=== PATIENT | female | born 1995 | race American Indian/Alaskan Native ===

== ENCOUNTER 2017-09-13 09:21 | Emergency (ER) | payer SELFPAY ==
[2017-09-13 09:50] VITALS: BP 156/89
--- NOTE | 2017-09-13 11:35 | Emergency Department Report ---
ED Female HPI - General Chief complaint: Urogenital-Female Stated complaint: VAGINAL DISCOMFORT/DISCHARGE Time Seen by Provider: 09/13/17 10:56 Source: patient Mode of arrival: Ambulatory Limitations: No Limitations - History of Present Illness MD Complaint: vaginal discharge -: Gradual Severity: mild Consistency: constant Improves with: none Worsens with: none Are you Now?: No Associated Symptoms: vaginal discharge. denies: vaginal bleeding, abdominal pain, nausea/vomiting, fever/chills, headaches, loss of appetite, dysuria, hematuria, rash, seizure, shortness of breath, syncope, weakness - Related Data Sexually active: Yes Previous Rx's Medication Instructions Recorded Last Taken Type Fluconazole [Diflucan TAB] 100 mg PO QDAY #2 tablet 09/13/17 Unknown Rx metroNIDAZOLE [Flagyl] 500 mg PO Q12HR #28 tab 09/13/17 Unknown Rx Allergies Allergy/AdvReac Type Severity Reaction Status Date / Time No Known Allergies Allergy Unverified 09/13/17 09:45 ED Review of Systems ROS: Stated complaint: VAGINAL DISCOMFORT/DISCHARGE Other details as noted in HPI Comment: Unobtainable due to pts medical conditions Constitutional: no symptoms reported, see HPI. denies: chills, fever Eyes: as per HPI. denies: eye pain ENT: as per HPI. denies: ear pain, throat pain Respiratory: no symptoms reported, see HPI. denies: cough, orthopnea Cardiovascular: as per HPI. denies: chest pain, palpitations, dyspnea on exertion, orthopnea Endocrine: no symptoms reported, see HPI. denies: excessive sweating, flushing , intolerance to cold, intolerance to heat Gastrointestinal: as per HPI. denies: abdominal pain, nausea, vomiting, diarrhea, constipation, hematemesis, melena Genitourinary: as per HPI, discharge. denies: urgency, dysuria, frequency, hematuria, abnormal menses, dyspareunia Musculoskeletal: as per HPI. denies: back pain Skin: as per HPI. denies: rash, lesions Neurological: as per HPI. denies: headache, weakness Psychiatric: as per HPI. denies: anxiety, depression Hematological/Lymphatic: as per HPI. denies: easy bleeding ED Past Medical Hx - Past Medical History Previous Medical History?: No - Surgical History Past Surgical History?: No - Social History Smoking Status: Former Smoker - Medications Home Medications: Home Medications Medication Instructions Recorded Confirmed Last Taken Type Fluconazole [Diflucan TAB] 100 mg PO QDAY #2 tablet 09/13/17 Unknown Rx metroNIDAZOLE [Flagyl] 500 mg PO Q12HR #28 tab 09/13/17 Unknown Rx ED Physical Exam - General Limitations: No Limitations General appearance: alert - Head Head exam: Present: atraumatic - Eye Eye exam: Present: PERRL - ENT ENT exam: Present: mucous membranes moist - Neck Neck exam: Present: normal inspection - Respiratory Respiratory exam: Present: normal lung sounds bilaterally - Cardiovascular Cardiovascular Exam: Present: regular rate - GI/Abdominal GI/Abdominal exam: Present: soft, normal bowel sounds. Absent: distended, tenderness, guarding, rebound, rigid, diminished bowel sounds - Rectal Rectal exam: Present: deferred - External exam: Present: normal external exam Speculum exam: Present: normal speculum exam, erythema, vaginal discharge, cervical discharge. Absent: vaginal bleeding, foreign body, tissue Bi-manual exam: Present: normal bi-manual exam. Absent: cervical motion tendernes, adnexal tenderness, adnexal mass, uterine enlargement, uterine tenderness - Extremities Exam Extremities exam: Present: normal inspection, full ROM, normal capillary refill. Absent: tenderness, pedal edema, joint swelling - Back Exam Back exam: Present: normal inspection, full ROM. Absent: tenderness, CVA tenderness (R), CVA tenderness (L), muscle spasm, paraspinal tenderness, vertebral tenderness - Neurological Exam Neurological exam: Present: alert, oriented X3, CN II-XII intact, normal gait - Psychiatric Psychiatric exam: Present: normal affect, normal mood - Skin Skin exam: Present: warm, dry, intact ED Course Vital Signs 09/13/17 09:45 Temperature 98.4 F Pulse Rate 80 Respiratory 20 Rate Blood Pressure 156/89 O2 Sat by Pulse 100 Oximetry - Reevaluation(s) Reevaluation #1: 09/13/17 13:05 to er w new vag dc w odor 2 sex partners. one on and off. the other rekindle. concerned for std no prev obgyn exam g0 preg neg pelvic completed see exam vss no fever no cva no abd pain dc home w obgyn referral ED Medical Decision Making - Medical Decision Making see note Critical care attestation.: If time is entered above; I have spent that time in minutes in the direct care of this critically ill patient, excluding procedure time. ED Disposition Clinical Impression: BV (bacterial vaginosis), Yeast infection, UTI (urinary tract infection) Disposition: TO HOME OR SELFCARE Is pt being admited?: No Does the pt Need Aspirin: No Condition: Stable Instructions: Bacterial Vaginosis (ED), Vulvovaginal Candidiasis (ED) Additional Instructions: safe sex Prescriptions: Fluconazole [Diflucan TAB] 100 mg PO QDAY #2 tablet metroNIDAZOLE [Flagyl] 500 mg PO Q12HR #28 tab Referrals: PRIMARY CAREMD [Primary Care Provider] - 3-5 Days LEA JACKSON MD [Referring] - 3-5 Days SHERRY RINALDI MD [Staff Physician] - 3-5 Days Forms: STI Treatment and Prevention Time of Disposition: 12:50
[2017-09-13 11:43] LABS: Bacteria,Urine 3+ /HPF (Negative); Bilirubin,Urine NEG (Negative); Blood,Urine SM (Negative); Ketones,Urine NEG (Negative); Leukocyte Esterase,Urine LG (Negative); Mucus,Urine 3+ /HPF; Nitrite,Urine NEG (Negative)
[2017-09-13] MEDS ORDERED: XYLOCAINE 1% MPF 5 mL INFILTRATI ONE (12:53)
[2017-09-13] MEDS ORDERED: ROCEPHIN IM ONE (12:53)
== END 2017-09-13 13:12 | disposition home or self-care (01) ==
LOC: ED 09:21
DX: N76.0 Acute vaginitis (principal); B96.89 Other specified bacterial agents as the cause of diseases classified elsewhere; B37.3 Candidiasis of vulva and vagina; N39.0 Urinary tract infection, site not specified; Z87.891 Personal history of nicotine dependence
CPT/HCPCS: 81001; 81025; 87086; 87210; 87591; 96372; 99284; J0696